=== PATIENT | female | born 1955 | race Caucasian/White ===

== ENCOUNTER → 2025-03-03 | Outpatient (CLI) | payer OTHER, SELFPAY ==
--- NOTE | 2025-03-03 13:35 | XR_ITS ---
Examination: PA lateral chest 2 views TECHNIQUE: Upright PA lateral chest 2 views Exam date and time: March 03, 2025 1344 hours INDICATIONS: Coughing congestion beginning 3 weeks ago. FINDINGS: Mild hyperexpansion No significant cardiac enlargement Accentuation basilar bronchovascular markings IMPRESSION: Mild bronchitis pattern
== END | disposition home or self-care (01) ==
LOC: CDIM 13:26
PROVIDERS: PCP Family Medicine; Referring Provider Family Medicine; Visit Provider Family Medicine
DX: R05.9 Cough, unspecified (principal); R09.89 Other specified symptoms and signs involving the circulatory and respiratory systems
CPT/HCPCS: 71046

== ENCOUNTER → 2025-06-03 | Outpatient (CLI) | payer OTHER, SELFPAY ==
[2025-06-03 08:07] LABS: Collection Type, Urine Clean Catch
[2025-06-03 08:44] LABS: Basophils # (Auto) 0.0 Thou/mm3 (0.0-0.2); Basophils % (Auto) 0 % (0-2.5); Eosinophils # (Auto) 0.1 Thou/mm3 (0.0-0.5); Eosinophils % (Auto) 1 % (0-10); Hematocrit 45.4 % (36.0-46.0); Hemoglobin 15.4 g/dL (12.0-16.0); Immature Granulocytes Auto 0.04 Thou/mm3 (0.00-0.00); Lymphocytes # (Auto) 2.2 Thou/mm3 (1.0-4.8); Lymphocytes % (Auto) 22 % (10-50); Mean Corpuscular HGB Conc 33.9 g/dl (31.0-37.0); Mean Corpuscular Hemoglobin 35.8 pg (25.0-35.0); Mean Corpuscular Volume 106 fL (80-100); Monocytes # (Auto) 0.6 Thou/mm3 (0.0-0.8); Monocytes % (Auto) 6 % (0-12); Neutrophils # (Auto) 7.1 Thou/mm3 (1.8-7.7); Neutrophils % (Auto) 71 % (37-80); Nucleated Red Blood Cell # 0.00 Thou/mm3 (0.00-0.00); Nucleated Red Blood Cell % 0 /100 WBC (0); Platelet Count 323 Thou/mm3 (140-440); RDW Standard Deviation 50.3 fL (36.4-46.3); Red Blood Count 4.30 Miln/mm3 (4.00-5.20); White Blood Count 9.9 Thou/mm3 (3.6-11.0)
[2025-06-03 08:45] LABS: Bacteria,Urine Rare; Bilirubin,Urine Negative (Negative); Blood,Urine Negative (Negative); Color,Urine Yellow (Lt Yel-Yel); Culture Indicated,Urine Not Indicated; Glucose, Urine Negative (Negative); Hyaline Casts,Urine < 1 /hpf (0-1); Ketones,Urine Negative (Negative); Leukocyte Esterase,Urine Negative (Negative); Nitrite,Urine Negative (Negative); PH,Urine 6.0 (5.0-7.0); Protein,Urine Negative (Neg - Trace); RBC,Urine 4 /hpf (0-3); Specific Gravity,Urine 1.016 (1.001-1.035); Squamous Epithelial Cell,Urine 12 /hpf (0-5); Urobilinogen,Urine Negative mg/dL (0.0-1.0); WBC,Urine 5 /hpf (0-5)
[2025-06-03 08:51] LABS: Glucose Estimated Average 114 mg/dL (80-131); Hemoglobin A1C 5.6 % Hgb (4.8-6.0)
[2025-06-03 09:02] LABS: Alanine Aminotransferase 83 U/L (10-49); Albumin, Serum 4.0 gm/dL (3.4-4.8); Albumin/Globulin Ratio 1.3 (1.2-2.2); Alkaline Phosphatase 108 U/L (46-116); Anion Gap 13 (7-16); Aspartate Amino Transferase 82 U/L (0-34); BUN/Creatinine Ratio 16 Ratio (12-20); Bilirubin,Total 0.8 mg/dL (0.3-1.2); Blood Urea Nitrogen 24 mg/dL (9-23); Calcium 9.5 mg/dL (8.3-10.6); Calcium (Corrected) 9.5 mg/dL (8.5-10.1); Carbon Dioxide 20.5 mMol/L (20.0-31.0); Cardiac Risk Estimate 3.6 RATIO (3.7-5.6); Chloride 108 mMol/L (98-107); Cholesterol 208 mg/dL (132-200); Creatinine (Component) 1.5 mg/dL (0.6-1.3); Globulin 3.0 gm/dL (2.3-3.5); Glucose 100 mg/dL (74-106); HDL Cholesterol 57 mg/dL (40-60); LDL Cholesterol,Calculated 134 mg/dL (0-130); Osmolality,Calculated 285 (275-295); Potassium 4.8 mMol/L (3.4-5.1); Sodium 141 mMol/L (136-145); Thyroid Stimulating Hormone 1.68 uIU/mL (0.55-4.78); Total Protein 7.0 gm/dL (5.7-8.2); Triglycerides 86 mg/dL (30-150); Vitamin D 25 Hydroxy Total 9.3 ng/mL (7.3-40.2); eGFR 38 See Note
[2025-06-03 09:23] LABS: Clarity,Urine Hazy (Clear/Hazy)
== END | disposition home or self-care (01) ==
LOC: COPL 06:46
PROVIDERS: PCP Family Medicine; Referring Provider Nurse Practitioner Family; Visit Provider Nurse Practitioner Family
DX: Z00.01 Encounter for general adult medical examination with abnormal findings (principal); I10 Essential (primary) hypertension
CPT/HCPCS: 36415; 80053; 80061; 81001; 82306; 83036; 84443; 85025

== ENCOUNTER 2025-07-06 14:15 | Inpatient (IN) | payer OTHER, MEDICARE, SELFPAY ==
[2025-07-06] VITALS (8 sets, daily range): BP systolic 119–150; BP diastolic 74–95; PULSE 64–91; RESP 14–18; TEMP 36.2–36.8; O2SAT 95–98; BMI 30.5; BMI 32.1
--- NOTE | 2025-07-06 14:34 | EKG_ITS ---
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
--- NOTE | 2025-07-06 14:36 | PD.EDWEAK ---
ED Weakness RME/HPI General Chief complaint: Weakness Stated complaint: DIZZINESS, WEAKNESS, HYPOTENSION Time Seen by Provider: 07/06/25 14:20 Arrival date/time: 07/06/25 14:15 RME / HPI RME / HPI Narrative: See [facility] for Dr. Freeman's HPI documentation. Related Data Home Medications ?Medication ?Instructions ?Recorded ?Confirmed losartan 50 mg tablet 50 mg PO DAILY 08/26/22 08/26/22 triamterene 75 1 tab PO QDAY 08/26/22 08/26/22 mg-hydrochlorothiazide 50 mg tablet Previous Rx's ?Medication ?Instructions ?Recorded pantoprazole 40 mg tablet,delayed 40 mg PO QDAY #90 tabs 08/26/22 release (Protonix) Allergies Allergy/AdvReac Type Severity Reaction Status Date / Time walnut Allergy Severe Swelling Verified 07/06/25 14:24 of Lip/Tongue/Throat Review of Systems Review of Systems Systems Reviewed: All systems reviewed, normal except as documented Past Medical History Past Medical History NEUROLOGIC: Negative Neurological Disorders, Seizures or Migraine CARDIAC: Positive Cardiac Disorders and Hypertension; Negative Congestive Heart Failure RESPIRATORY: Negative Chronic Obstructive Pulmonary Disease (COPD), Asthma or Sleep Apnea GASTROINTESTINAL: Negative Gastrointestinal Disorders GENITOURINARY: Negative Genitourinary Disorders or Renal Disease MUSCULOSKELETAL: Negative Musculoskeletal Disorders ENDOCRINE: Negative Endocrine Disorders, Diabetes Mellitus Type 1 or Diabetes Mellitus Type 2 HEMATOLOGIC: Negative Blood Disorders OTHER HISTORY: Positive Chicken Pox, Measles and Mumps; Negative Blood Transfusions, Anesthesia Reactions or Cancer Surgical History SURGICAL: Negative Cardiac Surgery Social History SMOKING STATUS: Never smoker ED Exam Narrative Physical exam: See [facility] for Dr. Freeman's physical exam documentation. Course Quality Measures none Orders Category Date Time Status Web Content Coordinator STAT Care 07/06/25 14:38 Active Continuous Pulse Oximetry NOW Care 07/06/25 14:38 Completed EKG (ED ONLY) *Do not use* NOW Care 07/06/25 14:35 Completed Insert IV STAT Care 07/06/25 14:38 Active Orthostatic Vitals NOW Care 07/06/25 14:39 Active Urinary Catheter STAT Care 07/06/25 14:[address] head/brain wo con Stat Exams 07/06/25 15:27 Completed EKG (ED Only) Stat Exams 07/06/25 14:34 Draft XR chest 1V portable Stat Exams 07/06/25 14:38 Completed B-Type Natriuretic Peptide Stat Lab 07/06/25 14:53 Completed CBC Stat Lab 07/06/25 14:53 Completed Comprehensive Metabolic Panel Stat Lab 07/06/25 14:53 Completed Magnesium Stat Lab 07/06/25 14:53 Completed Prothrombin Time with INR Stat Lab 07/06/25 14:53 Completed Troponin I Stat Lab 07/06/25 14:53 Completed Sodium Chloride 0.9% 1000 ml [Ns] 1,000 ml Med 07/06/25 14:38 Discontinued IV 999 mls/hr Oxygen Delivery NOW RT 07/06/25 14:38 Active Vital Signs Vital signs: Vital Signs Temperature 98.2 F 07/06/25 14:34 Pulse Rate 77 07/06/25 14:34 Respiratory Rate 16 07/06/25 14:34 Blood Pressure 119/74 07/06/25 14:34 Pulse Oximetry (%) 98 07/06/25 14:34 Oxygen Delivery Method Room Air 07/06/25 14:34 Weakness MDM Narrative MDM Narrative:: This section includes all my notes and documentations, including HPI, PE, and ED course. Yaya Freeman MD HPI: 70yo female with a history of Meniere's disease, HTN BIBA from home presents to the ED for a chief complaint of generalized weakness. Per EMS, patient has been feeling dizzy for the last 2 hours, reporting she lost consciousness while laying in bed watching TV. With EMS, blood pressure was 83/51 and LR was started. Patient reports associated chronic nausea and vomiting that has worsened over the last 2 weeks, and sweating. Denies any cough, chest pain, abdominal pain, back pain, UTI symptoms, bloody/black stools, or any other associated symptoms. Denies being on any blood thinners. ROS: All negative except as documented in HPI. Physical Exam: GENERAL APPEARANCE: alert and oriented x 4, well-developed, well-nourished, no acute distress VITALS: All vitals were reviewed and the pulse ox is 98% on room air, which is normal according to my interpretation. HEENT: Normocephalic, atraumatic; pupils equal, round, reactive to light; EOMI; mucous membranes pink, moist; oropharynx clear NECK: Supple LUNGS: CTABL; no wheezes, no rales, no rhonchi HEART: Regular rate, regular rhythm; normal S1, S2; no murmurs ABDOMEN: non distended; normal BS; soft, no tenderness, no guarding, no rebound; no masses, no organomegaly, no hernia BACK: no CVA tenderness EXTREMITIES: atraumatic; no edema NEUROLOGIC: awake; alert and oriented x4; cranial nerves II-XII grossly intact; no focal sensory or motor deficits PSYCHIATRIC: appropriate mood and affect SKIN: warm, dry, normal color; no rashes I reviewed EMS notes. I reviewed all diagnostic test results. My interpretation of the EKG is sinus rhythm with no STEMI. My interpretation of the CXR is cardiomegaly, chronic changes in the inferior lobes, no infiltrates, no pleural effusions, according to my interpretation. My review of the CT head report is unremarkable. Blood tests remarkable for Creatinine 1.5. At this point, diagnoses include: syncope Treatment here included: IV fluid At 1727, I discussed case with the resident physician, attending Dr. Sylvester from Hospitalist service regarding admission. Discussed patients ED course, exam findings, labs, and radiology results. The Hospitalist agrees to accept the patient for admission. Patient data External records reviewed:: [facility] previous records (Per chart review, patient has no previous ED visits or admissions to this facility.) and EMS form Clinical information provided by:: patient Social determinants that could affect healthcare access:: none Patient has the following chronic illnesses:: Meniere's disease, HTN How is presenting disease/condition affected by chronic disease/condition?: uneffected by Evaluation data The following diagnostics were reviewed and interpreted by me:: lab results, radiology exam(s) and EKG tracing(s) (done at 1437, NSR, rate of 77, normal axis, no ectopy, T wave inversion in V1-V3, no STEMI, unchanged from 07/28/23, according to my interpretation.) Lab and/or radiology exams considered but not ordered:: none Interpretation Summary: CXR shows cardiomegaly, chronic changes in the inferior lobes, no infiltrates, no pleural effusions, according to my interpretation. [place] [facility] Report Signed Patient: LANA MALIK [facility]. Record#: [id number] Birthdate: 1955 Age/Sex: 70 / F Location: [facility] Attending Dr: Ordering Physician: Catracho Freeman MD Date of Service: 07/06/25 Procedure(s): CT head/brain wo con Accession Number(s): [id number] cc: Ady Goldstein MD; Srinivasa Mccarthy MD; Catracho Freeman MD~ Examination: CT brain head without contrast. 2-D sagittal coronal reconstructions Date and time of exam:07/06/2025 1558 hrs Indications: syncope dizziness today Technique: Multiple CT axial sections of the brain have been obtained, 5 mm slice thickness. Contrast has not been administered. 2-D sagittal, coronal reconstructions have been obtained Low dose protocols were performed. One or more of the following dose reduction techniques were used; automated exposure control, adjustment of the mA and/or KV according to patient size, use of iterative reconstruction technique. Findings: No significant ventricular enlargement. Intra-axial or extra-axial hemorrhage density is not seen. No mass effect or midline shift Basal cisterns are not remarkable. Fourth ventricle is midline. Cranial vault intact. Impression: Negative for acute hemorrhage, mass effect or midline shift Dictated By: Srinivasa Mccarthy MD Signed By: <Electronically signed by Srinivasa Mccarthy MD in OV> 07/06/25 1703 Medications / Prescriptions Medications or Prescriptions considered but not ordered:: none Medication administrations:: Medication Administration History Discontinued Medications Sodium Chloride (Ns) 1,000 mls @ 999 mls/hr IV .Q1H1M ONE Stop: 07/06/25 15:38 Last Admin: 07/06/25 16:02 Dose: 999 mls/hr Documented By: CS see above Consultations Consultation(s) initiated? (list below): Yes Consultation #1 (Physician, Specialty, Details): At 1727, I discussed case with the resident physician, attending Dr. Sylvester from Hospitalist service regarding admission. Discussed patients ED course, exam findings, labs, and radiology results. The Hospitalist agrees to accept the patient for admission. Diagnosis Weakness Differential Diagnosis: dehydration and other (vasovagal syncope, electrolyte abnormality, orthostatic hypotension) Most likely diagnosis given after review of the tests above:: see clinical impression below Admission Indicated Admission indicated?: indicated Admission Request Was there a request for admission?: Yes Admission Attestation Admission request attestation: Discussed case with [] from Hospitalist service regarding admission. Discussed patients ED course, exam findings, labs, and radiology results. The Hospitalist [agrees,declines] to accept the patient for admission. Disposition Plan Disposition Plan: Admit Discharge Plan Plan Patient Disposition: Admit Acute Care w/in Hospital Prescriptions/Referrals Prescriptions/Med Rec: No Action losartan 50 mg tablet 50 mg PO DAILY triamterene-hydrochlorothiazid 75-50 mg Tablet 1 tab PO QDAY pantoprazole [Protonix] 40 mg Tablet,Delayed Release (Dr/Ec) 40 mg PO QDAY Qty: 90 0RF Referrals: Ady Goldstein MD [Primary Care Provider, Family Practice] - In 1 week Problem List Clinical Impression: Syncope Patient/Caregiver Discharge Instructions Print Language: Swazi Stand Alone Forms: Bren Award Info., Patient Portal Info Letter
--- NOTE | 2025-07-06 14:38 | XR_ITS ---
Chest: AP Chest single view Technique: Portable sitting AP chest single view Date and time: 07/06/2025 239 pm Indications: chest pain today Findings: Mild enlargement left ventricle Ectatic aorta No pneumonia or pulmonary edema Impression: No pneumonia or pulmonary edema
[2025-07-06 15:21] LABS: Basophils # (Auto) 0.0 Thou/mm3 (0.0-0.2); Basophils % (Auto) 0 % (0-2.5); Eosinophils # (Auto) 0.1 Thou/mm3 (0.0-0.5); Eosinophils % (Auto) 1 % (0-10); Hematocrit 36.4 % (36.0-46.0); Hemoglobin 12.3 g/dL (12.0-16.0); Immature Granulocytes Auto 0.02 Thou/mm3 (0.00-0.00); Lymphocytes # (Auto) 1.7 Thou/mm3 (1.0-4.8); Lymphocytes % (Auto) 30 % (10-50); Mean Corpuscular HGB Conc 33.8 g/dl (31.0-37.0); Mean Corpuscular Hemoglobin 36.6 pg (25.0-35.0); Mean Corpuscular Volume 108 fL (80-100); Monocytes # (Auto) 0.5 Thou/mm3 (0.0-0.8); Monocytes % (Auto) 8 % (0-12); Neutrophils # (Auto) 3.6 Thou/mm3 (1.8-7.7); Neutrophils % (Auto) 61 % (37-80); Nucleated Red Blood Cell # 0.00 Thou/mm3 (0.00-0.00); Nucleated Red Blood Cell % 0 /100 WBC (0); Platelet Count 277 Thou/mm3 (140-440); RDW Standard Deviation 57.1 fL (36.4-46.3); Red Blood Count 3.36 Miln/mm3 (4.00-5.20); White Blood Count 5.9 Thou/mm3 (3.6-11.0)
--- NOTE | 2025-07-06 15:27 | XR_ITS ---
Examination: CT brain head without contrast. 2-D sagittal coronal reconstructions Date and time of exam:07/06/2025 1558 hrs Indications: syncope dizziness today Technique: Multiple CT axial sections of the brain have been obtained, 5 mm slice thickness. Contrast has not been administered. 2-D sagittal, coronal reconstructions have been obtained Low dose protocols were performed. One or more of the following dose reduction techniques were used; automated exposure control, adjustment of the mA and/or KV according to patient size, use of iterative reconstruction technique. Findings: No significant ventricular enlargement. Intra-axial or extra-axial hemorrhage density is not seen. No mass effect or midline shift Basal cisterns are not remarkable. Fourth ventricle is midline. Cranial vault intact. Impression: Negative for acute hemorrhage, mass effect or midline shift
[2025-07-06 15:36] LABS: INR 1.0 (0.9-1.3); Prothrombin Time 10.9 Seconds (9.0-12.2)
[2025-07-06 15:52] LABS: B-Type Natriuretic Peptide 58 pg/mL (0-100)
[2025-07-06 15:56] LABS: Alanine Aminotransferase 72 U/L (10-49); Albumin, Serum 3.5 gm/dL (3.4-4.8); Albumin/Globulin Ratio 1.5 (1.2-2.2); Alkaline Phosphatase 98 U/L (46-116); Anion Gap 15 (7-16); Aspartate Amino Transferase 76 U/L (0-34); BUN/Creatinine Ratio 13 Ratio (12-20); Bilirubin,Total 0.4 mg/dL (0.3-1.2); Blood Urea Nitrogen 19 mg/dL (9-23); Calcium 9.7 mg/dL (8.3-10.6); Calcium (Corrected) 10.1 mg/dL (8.5-10.1); Carbon Dioxide 18.9 mMol/L (20.0-31.0); Chloride 106 mMol/L (98-107); Creatinine (Component) 1.5 mg/dL (0.6-1.3); Estimated Creatinine Clearance 41.0 mL/min (>60); Globulin 2.4 gm/dL (2.3-3.5); Glucose 94 mg/dL (74-106); Magnesium 1.7 mg/dL (1.6-2.6); Osmolality,Calculated 281 (275-295); Potassium 4.0 mMol/L (3.4-5.1); Sodium 140 mMol/L (136-145); Total Protein 5.9 gm/dL (5.7-8.2); Troponin I < 0.002 ng/mL (0.0-0.045); eGFR 38 See Note
[2025-07-06] MEDS: SODIUM CHLORIDE 0.9% 1000 ML 1,000 ML 999 ML IV (16:02)
--- NOTE | 2025-07-06 18:05 | ECHO_ITS ---
Transthoracic Echo Report Ht (in): 67 Wt (lb): 195 Exam Location: Echo Lab Status: Inpatient Rn Clinical Coordinator: Alexa Abad Indications: Procedure Performed: BP: 157 / 89 HR: 78 MEASUREMENTS (Male / Female) Normal Values 2D ECHO LV Diastolic Diameter PLAX 4.9 cm 4.2 - 5.9 / 3.9 - 5.3 cm LV Systolic Diameter PLAX 3.4 cm IVS Diastolic Thickness 0.9 cm 0.6 - 1.0 / 0.6 - 0.9 cm LVPW Diastolic Thickness 1.1 cm 0.6 - 1.0 / 0.6 - 0.9 cm LV Relative Wall Thickness 0.4 LVOT Diameter 1.8 cm LA Volume Index 10.7 cm?/m? 16 - 28 cm?/m? Ascending Aorta Diameter 3.1 cm M-MODE AV Cusp Separation MM 1.5 cm DOPPLER AV Peak Velocity 130.0 cm/s AV Peak Gradient 6.8 mmHg AV Mean Gradient 3.0 mmHg AV Velocity Time Integral 26.3 cm LVOT Peak Velocity 106.0 cm/s LVOT Peak Gradient 4.5 mmHg LVOT Velocity Time Integral 23.8 cm LVOT Cardiac Index 2280.7 cm?/min?m? AV Area Cont Eq vti 2.3 cm? AV Area Cont Eq pk 2.1 cm? MV Area PHT 3.2 cm? Mitral E Point Velocity 85.4 cm/s Mitral A Point Velocity 96.0 cm/s Mitral E to A Ratio 0.9 LV E' Lateral Velocity 7.4 cm/s Mitral E to LV E' Lateral Ratio 11.5 LV E' Septal Velocity 9.8 cm/s Mitral E to LV E' Septal Ratio 8.7 TR Peak Velocity 244.3 cm/s TR Peak Gradient 23.9 mmHg PV Peak Velocity 118.0 cm/s PV Peak Gradient 5.6 mmHg FINDINGS Left Ventricle Normal left ventricular size, wall thickness, systolic function with no obvious regional wall motion abnormalities.There is grade I diastolic dysfunction of the left ventricle (impaired relaxation pattern). The ejection fraction is visually estimated at 60-65 %. Right Ventricle The right ventricle is normal in size and systolic function. The estimated right ventricular systolic pressure, 30 mmHg with RAP 3 Left Atrium The left atrium is normal by two-dimensional, color flow and Doppler imaging with no structural abnormalities, no thrombus formation present. Right Atrium The right atrium is normal by two-dimensional imaging, color flow and Doppler imaging with no structural abnormalities, no thrombus formation present. Atrial Septum The interatrial septum appears normal with no evidence of a shunt. Aorta The aorta is normal by two-dimensional, color flow and Doppler interrogation. Mitral Valve The mitral valve is normal by two-dimensional, color flow and Doppler interrogation. Trace mitral regurgitation. Aortic Valve The aortic valve is trileaflet and normal by two-dimensional, color flow and Doppler interrogation. There is no significant aortic valve regurgitation. Tricuspid Valve The tricuspid valve is normal by two-dimensional, color flow and Doppler interrogation. There is trace tricuspid valve regurgitation. Pulmonic Valve The pulmonic valve is not well visualized. There is no significant pulmonic valve regurgitation. Vessels The pulmonary artery appears normal. The inferior vena cava pulmonary and hepatic veins appear normal. Pericardium There is a small pericardial effusion without evidence of pericardial tamponade. CONCLUSIONS Indication: Syncope Normal left ventricular size and function Mild LVH. Estimated ejection fraction is 60-65%. Grade 1 diastolic dysfunction. Normal Right ventricular size and function. RVSP 30mmHg with RAP 3 Trace mitral and trace tricuspid regurgitation noted. Mild AV sclerosis without stenosis. Small pericardial effusion with fibrogenous exudate on RV wall indicating possible chronic effusion. No evidence of pericardial tamponade. Minh Paige (Electronically Signed) Final Date: 07 July 2025 18:41
--- NOTE | 2025-07-06 18:14 | ESHP_ITS ---
<Statement entered by Jaxson Sylvester MD - 07/10/25 14:17> I reviewed above note and agree with findings and plans. I have also personally examined the patient with medicine team and went over assessment and plan with medical team including mechanical intern and resident physician. <Statement entered by Deny Yusuf MD - 07/07/25 11:16> Patient examined and case discussed with the team including attending physician. Note reviewed, I agree with the care plan as documented. Please refer to the note below for further details. - Deny Yusuf MD, PGY 3 Disclaimer: The document may contain phonetic/typographic errors due to voice recognition software. These errors are purely due to imperfections in the software program. Documentation for date of: 07/06/25 HPI History of Present Illness History of present illness: 70-year-old female with a past medical history of M?ni?re's disease and hypertension who presented to the ED on 07/06/2020 2:25 episodes of syncope. She was laying down in bed watching TV when she had 2, 1 minute episodes 1 minute apart where she passed out and was unresponsive per her . She does not remember these events. With EMS her blood pressure was 83/51 and LR was started and route. The patient endorses intensified nausea and vomiting over the past few weeks associated with her M?ni?re's disease. She denies any chest pain, palpitations, diarrhea, abdominal pain, or dysuria. She is not on blood thinners. ED course: * Vitals on arrival showed BP 119/74, pulse 77, respiratory rate 16, temperature 98.2, O2 sat 98% on room air. * The patient was given 1 L normal saline * Labs: BUN 19, creatinine 1.5, AST 76, ALT 72, MCV 108, sodium 140, potassium 4.0, chloride 106, carbon dioxide 18.9, anion gap 15. * Imaging: EKG showed a sinus rhythm with no acute ST segment changes. Chest x- ray was positive for cardiomegaly, negative for pulmonary infiltrates or pleural effusions. CT of the head was negative for any acute infarct or hemorrhage. * Patient will be admitted to telemetry for continued monitoring due to her syncope. History: * Past medical history: Hypertension, M?ni?re's disease * Family history: Patient is adopted, mentions that biological mother had gastric cancer * Surgical history: Left knee replacement 2 years ago, perforated ovary in the 1980s * Social history: Drinks 1-2 shots of whiskey nightly, denies tobacco use, denies substance use * Allergies: Walnuts, no known drug allergies Home medications: * Triamterene-hydrochlorothiazide 70-50 mg once daily * Losartan 50 mg once daily * Pantoprazole 40 mg daily Review of Systems Review of Systems Narrative Review of Systems: Review of Systems: * General: Denies fevers, chills. * HEENT: Denies headache, congestion, or sore throat. * Cardiac: Denies chest pain or palpitations. * Pulmonary: Endorses being [place] breath [place] Denies cough * GI: Admits to increased frequency of nausea and vomiting over the past few weeks associated with her M?ni?re's disease. Denies diarrhea, constipation, melena, or hematochezia. * : Denies dysuria, hematuria, frequency, or urgency. * MSK: Endorses left lower extremity swelling, denies pain in the extremities, joints, or myalgias. * Neuro: Denies weakness, numbness, vision changes, or speech difficulty. Exam Vital Signs Temp Pulse Resp BP Pulse Ox O2 Del Method 98.1 F 76 18 119/76 96 Room Air 07/06/25 16:10 07/06/25 16:24 07/06/25 16:13 07/06/25 16:24 07/06/25 16:10 07/06/25 16:10 Narrative Exam General: Awake and in no acute distress. Conversational and non-toxic appearing. Neurologic: GCS 15. Alert and oriented x3, no gross neurological deficit, and patient able to move all 4 extremities. HEENT: Mild proptosis bilaterally on gross examination, normocephalic, atraumatic, mucous membranes moist. Pupils reactive to light. Heart: Regular rate and rhythm, normal S1 and S2, no murmurs. Lungs: Clear to auscultation bilaterally with no wheezing or crackles. Abdomen: Soft, nondistended, nontender, positive bowel sounds. No guarding or rebound tenderness. Extremities: Left ankle swelling, nontender to palpation. No edema. 2+ radial and dorsalis pedis pulses bilaterally. Skin: Warm. Dry. No rash or ecchymoses. Results: Labs 07/07/25 04:26 07/07/25 04:26 Labs: Short CBC 07/06/25 Range/Units 14:53 WBC 5.9 (3.6-11.0) Thou/mm3 Hgb 12.3 (12.0-16.0) g/dL Hct 36.4 (36.0-46.0) % Plt Count 277 D (140-440) Thou/mm3 BMP 07/06/25 14:53 Sodium 140 Potassium 4.0 Chloride 106 Carbon Dioxide 18.9 L BUN 19 Creatinine 1.5 H Glucose 94 Calcium 9.7 Cardiac Enzymes 07/06/25 Range/Units 14:53 Troponin I < 0.002 (0.0-0.045) ng/mL Liver Function 07/06/25 Range/Units 14:53 Total Bilirubin 0.4 (0.3-1.2) mg/dL AST 76 H (0-34) U/L ALT 72 H (10-49) U/L Alkaline Phosphatase 98 (46-116) U/L Albumin 3.5 (3.4-4.8) gm/dL Quality Measures Quality Measures none Advance care planning discussed with:: patient Medications Home Medications and Allergies Home Medications ?Medication ?Instructions ?Recorded ?Confirmed ?Type losartan 50 mg tablet 50 mg PO DAILY 08/26/2205/23 History triamterene 75 1 tab PO QDAY 08/26/2207/06 History mg-hydrochlorothiazide 50 mg tablet aluminum-mag hydroxide-simethicone 15 ml PO Q6H PRN dy spepsia and 07/06/25 07/06/25 History 200 mg-200 mg-20 mg/5 mL oral susp Nausea/Vomiting (Antacid Regular Strength) Allergies Allergy/AdvReac Type Severity Reaction Status Date / Time walnut Allergy Severe Swelling Verified 07/06/25 14:24 of Lip/Tongue/Throat Visit Medications Acetaminophen (Acetaminophen 325 Mg Tablet) 650 mg PO Q6H PRN PRN Reason: Fever >99.9 Stop: 08/05/25 17:59 Lactated Ringer's (Lactated Ringers) 1,000 mls @ 75 mls/hr IV .[id number] Stop: 08/05/25 17:59 Discontinued Medications Sodium Chloride (Ns) 1,000 mls @ 999 mls/hr IV .Q1H1M ONE Stop: 07/06/25 15:38 Last Admin: 07/06/25 16:02 Dose: 999 mls/hr Assessment & Plan Plan 70-year-old woman with a past medical history of hypertension and M?ni?re's disease who presented after 2 episodes of syncope. She was found to be hypotensive with a blood pressure of 83/51 by EMS and fluids were started in route. Vitals were stable on arrival. She was given a total of 1 L of normal saline in the ED and admitted for monitoring of her syncopal episodes. #Syncopal episode * The day of presentation on 07/06/2025, patient had 2 approximately 1 minute episodes of syncope each by 1 minute which the patient lost consciousness but experienced no trauma * She does not remember either of these events * Head CT on 07/06/2025 was negative for acute hemorrhage mass effect or midline shift * EKG on 07/06/2025 showed sinus rhythm with a rate of 177 with low voltage QRS complexes * Patient's syncopal episode is suspicious for being arrhythmogenic in nature as the patient was stationary during the episode and orthostatic blood pressures are nearly similar * The patient denies chest pain or associated palpitations and EKG was negative for any acute ST segment changes, which may further reinforce a previously unknown underlying arrhythmia as the culprit for the patient's syncopal episode Plan: * Admit to telemetry for rhythm monitoring * Echo ordered * LR maintenance fluids * Follow-up troponins every 6 hours * Repeat EKG morning of 07/07/2025 * TSH & free T4 ordered * Will hold home all home medications: Losartan 50 mg p.o. daily, pantoprazole 40 mg p.o. daily, and triamterene hydrochlorothiazide 1 tablet daily #M?ni?re's disease * Patient mentions that her nausea and vomiting has intensified over the past 2 to 3 weeks Plan: * Will hold her home medication triamterene hydrochlorothiazide in the setting of syncopal episode * Zofran 4 mg IV push every 6 hours as needed for nausea or vomiting #History of hypertension * Patient takes losartan 50 mg daily at home * Will hold for now in the setting of syncope Plan: * Labetalol 10 mg IV push every 6 hours as needed for systolic blood pressure over 165 #LESIA * Creatinine 1.5 on arrival, unknown if this is baseline Plan: * Follow-up renal function panel in a.m. * Start IV maintenance fluids Hospital Maintenance: DVT ppx: SCDs Diet: Cardiac diet IV lines: Peripheral IVs Conteh: None Code status: Full code Dispo: Patient admitted to telemetry for monitoring of her cardiac rhythm in the setting of syncopal episode. Will follow-up troponins, echocardiogram, TSH, and repeat EKG tomorrow morning. Patient was seen and discussed with my attending physician Dr. Higinio PÉREZ and my senior resident Dr. Deny Yusuf MD PGY-3. Klever Pascual DO PGY-1.
[2025-07-06 19:20] LABS: Thyroid Stimulating Hormone 2.16 uIU/mL (0.55-4.78); Troponin I < 0.002 ng/mL (0.0-0.045)
[2025-07-06] MEDS: RINGERS LACTATED 500 ML 500 ML 999 ML IV (19:39)
[2025-07-06] MEDS: RINGERS LACTATED 1000 ML 1,000 ML 75 ML IV (19:39)
[2025-07-06] MEDS: Magnesium Sulfate 2 GM Ivpb 2 GM/50 ML BAG IV (19:39)
[2025-07-06] MEDS: FAMOTIDINE INJ 10 MG/ML VIAL 2 ML 20 MG IVP (19:40)
--- NOTE | 2025-07-06 19:54 | PC.NURSE ---
gave pt k+ pill she vomitted it after admin. called to notify hosptialist no answer will try again
--- NOTE | 2025-07-06 20:18 | PC.NURSE ---
dr. jason ok not ordering iv k+ as pt K+ 4.0
[2025-07-07] VITALS (8 sets, daily range): BP systolic 118–159; BP diastolic 83–95; PULSE 74–88; RESP 13–19; TEMP 36.3–37.1; O2SAT 95–98; BMI 32.1
[2025-07-07 01:56] LABS: Troponin I 0.065 ng/mL (0.0-0.045)
[2025-07-07 05:48] LABS: Basophils # (Auto) 0.0 Thou/mm3 (0.0-0.2); Basophils % (Auto) 0 % (0-2.5); Eosinophils # (Auto) 0.0 Thou/mm3 (0.0-0.5); Eosinophils % (Auto) 0 % (0-10); Hematocrit 38.8 % (36.0-46.0); Hemoglobin 13.2 g/dL (12.0-16.0); Immature Granulocytes Auto 0.03 Thou/mm3 (0.00-0.00); Lymphocytes # (Auto) 1.4 Thou/mm3 (1.0-4.8); Lymphocytes % (Auto) 19 % (10-50); Mean Corpuscular HGB Conc 34.0 g/dl (31.0-37.0); Mean Corpuscular Hemoglobin 36.3 pg (25.0-35.0); Mean Corpuscular Volume 107 fL (80-100); Monocytes # (Auto) 0.5 Thou/mm3 (0.0-0.8); Monocytes % (Auto) 7 % (0-12); Neutrophils # (Auto) 5.5 Thou/mm3 (1.8-7.7); Neutrophils % (Auto) 74 % (37-80); Nucleated Red Blood Cell # 0.00 Thou/mm3 (0.00-0.00); Nucleated Red Blood Cell % 0 /100 WBC (0); Platelet Count 293 Thou/mm3 (140-440); RDW Standard Deviation 55.2 fL (36.4-46.3); Red Blood Count 3.64 Miln/mm3 (4.00-5.20); White Blood Count 7.4 Thou/mm3 (3.6-11.0)
[2025-07-07 06:02] LABS: Alanine Aminotransferase 64 U/L (10-49); Albumin, Serum 3.5 gm/dL (3.4-4.8); Albumin/Globulin Ratio 1.3 (1.2-2.2); Alkaline Phosphatase 102 U/L (46-116); Anion Gap 13 (7-16); Aspartate Amino Transferase 55 U/L (0-34); BUN/Creatinine Ratio 14 Ratio (12-20); Bilirubin,Total 0.9 mg/dL (0.3-1.2); Blood Urea Nitrogen 17 mg/dL (9-23); Calcium 9.5 mg/dL (8.3-10.6); Calcium (Corrected) 9.9 mg/dL (8.5-10.1); Carbon Dioxide 20.5 mMol/L (20.0-31.0); Cardiac Risk Estimate 3.2 RATIO (3.7-5.6); Chloride 108 mMol/L (98-107); Cholesterol 170 mg/dL (132-200); Creatinine (Component) 1.2 mg/dL (0.6-1.3); Estimated Creatinine Clearance 52.6 mL/min (>60); Free T4 (Free Thyroxine) 1.64 ng/dL (0.89-1.76); Globulin 2.7 gm/dL (2.3-3.5); Glucose 93 mg/dL (74-106); HDL Cholesterol 53 mg/dL (40-60); LDL Cholesterol,Calculated 97 mg/dL (0-130); Magnesium 2.1 mg/dL (1.6-2.6); Osmolality,Calculated 282 (275-295); Phosphorous 3.0 mg/dL (2.4-5.1); Potassium 4.6 mMol/L (3.4-5.1); Sodium 141 mMol/L (136-145); Total Protein 6.2 gm/dL (5.7-8.2); Triglycerides 98 mg/dL (30-150); eGFR 49 See Note
[2025-07-07 07:04] LABS: Troponin I 0.175 ng/mL (0.0-0.045)
[2025-07-07] MEDS: FAMOTIDINE INJ 10 MG/ML VIAL 2 ML 20 MG IVP (08:59)
[2025-07-07] MEDS: RINGERS LACTATED 1000 ML 1,000 ML 75 ML IV (09:11)
[2025-07-07] MEDS: VIT B12/Vit C/FA (Nephrovite) TABLET 1 TAB PO (09:11)
[2025-07-07] MEDS: ONDANSETRON INJ 2 MG/ML INJ 2 ML 4 MG IVP ×2 (09:51→16:54)
--- NOTE | 2025-07-07 11:36 | PC.SS ---
Patient is alert/oriented. Patient was able to verify demographics. Patient resides with her . Independent with ADL's. Patient does not possess DME. Admitted for syncope. Patient drives herself to appointments. Pharmacy: [facility]. PCP: Dr. Goldstein. Last appt was 2 weeks ago. Patient discharge plan is to return home. Alt medical decision maker: Adrian Woods, , transportation: family Patient d/c plan: home no further needs
[2025-07-07 13:16] LABS: Troponin I 0.241 ng/mL (0.0-0.045)
--- NOTE | 2025-07-07 16:35 | ESPR_ITS ---
<Statement entered by Jaxson Sylvester MD - 07/10/25 14:18> I reviewed above note and agree with findings and plans. I have also personally examined the patient with medicine team and went over assessment and plan with medical team including music internship and resident physician. <Statement entered by Ra Olmtsead MD - 07/07/25 18:09> No acute overnight events. Seen and examined at bedside. States that she has not been experiencing any shortness of breath or chest pain but troponins continue to uptrend and so we will continue to follow. Cardiology consulted and appreciate recommendations, echo pending. ----- Note reviewed and agree with care plan as documented. Please refer to the note below for further details. Plan discussed with attending physician Dr. Higinio Olmstead MD PGY-2 Internal Medicine Documentation for date of: 07/07/25 Subjective Subjective Interval history: Troponins are uptrending, went from 0.175 to 0.241. Cardiology consulted, pending echo as well. MCV 107, gave Nephro-Lillian. Patient is resting comfortably in bed and currently has no symptoms of nausea or dizziness. Had an episode of vomiting last night in the ED before she was moved upstairs. Exam Vital Signs Temp Pulse Resp BP Pulse Ox O2 Del Method 97.4 F 81 15 158/85 H 98 Room Air 07/07/25 11:46 07/07/25 12:00 07/07/25 11:46 07/07/25 11:46 07/07/25 11:46 07/07/25 11:46 Narrative Exam General: Awake and in no acute distress. Conversational and non-toxic appearing. Neurologic: GCS 15. Alert and oriented x3, no gross neurological deficit, and patient able to move all 4 extremities. HEENT: Mild proptosis bilaterally on gross examination, normocephalic, atraumatic, mucous membranes moist. Pupils reactive to light. Heart: Regular rate and rhythm, normal S1 and S2, no murmurs. Lungs: Clear to auscultation bilaterally with no wheezing or crackles. Abdomen: Soft, nondistended, nontender, positive bowel sounds. No guarding or rebound tenderness. Extremities: Left ankle swelling, nontender to palpation. No edema. 2+ radial and dorsalis pedis pulses bilaterally. Skin: Warm. Dry. No rash or ecchymoses. Objective Labs 07/07/25 04:26 07/07/25 04:26 Labs: Laboratory Results - last 24 hr 07/06/25 07/07/25 07/07/25 18:32 00:43 04:26 WBC 7.4 RBC 3.64 L Hgb 13.2 Hct 38.8 MCV 107 H MCH 36.3 H MCHC 34.0 RDW Std Deviation 55.2 H Plt Count 293 Neut % (Auto) 74 Lymph % (Auto) 19 [place] % (Auto) 7 Eos % (Auto) 0 Baso % (Auto) 0 Neut # (Auto) 5.5 Lymph # (Auto) 1.4 [place] # (Auto) 0.5 Eos # (Auto) 0.0 Baso # (Auto) 0.0 Immature Gran # (Auto) 0.03 H Absolute Nucleated RBC 0.00 Immature Gran % 0 Nucleated RBC % 0 Sodium 141 Potassium 4.6 D Chloride 108 H Carbon Dioxide 20.5 Anion Gap 13 BUN 17 Creatinine 1.2 Estim Creat Clear Calc 52.6 L eGFR 49 L BUN/Creatinine Ratio 14 Glucose 93 Calculated Osmolality 282 Calcium 9.5 Corrected Calcium 9.9 Phosphorus 3.0 Magnesium 2.1 Total Bilirubin 0.9 D AST 55 H ALT 64 H Alkaline Phosphatase 102 Troponin I < 0.002 0.065 H* Total Protein 6.2 Albumin 3.5 Globulin 2.7 Albumin/Globulin Ratio 1.3 Triglycerides 98 Cholesterol 170 LDL Cholesterol, Calc 97 HDL Cholesterol 53 Cholesterol/HDL Ratio 3.2 L TSH 2.16 Free T4 1.64 07/07/25 07/07/25 06:18 12:13 WBC RBC Hgb Hct MCV MCH MCHC RDW Std Deviation Plt Count Neut % (Auto) Lymph % (Auto) [place] % (Auto) Eos % (Auto) Baso % (Auto) Neut # (Auto) Lymph # (Auto) [place] # (Auto) Eos # (Auto) Baso # (Auto) Immature Gran # (Auto) Absolute Nucleated RBC Immature Gran % Nucleated RBC % Sodium Potassium Chloride Carbon Dioxide Anion Gap BUN Creatinine Estim Creat Clear Calc eGFR BUN/Creatinine Ratio Glucose Calculated Osmolality Calcium Corrected Calcium Phosphorus Magnesium Total Bilirubin AST ALT Alkaline Phosphatase Troponin I 0.175 H* 0.241 H* Total Protein Albumin Globulin Albumin/Globulin Ratio Triglycerides Cholesterol LDL Cholesterol, Calc HDL Cholesterol Cholesterol/HDL Ratio TSH Free T4 Quality Measures Quality Measures none Advance care planning discussed with:: patient Assessment & Plan Assessment Current Active Medications: Generic Name Dose Route Start Last Admin Trade Name Freq PRN Reason Stop Dose Admin Acetaminophen 1,000 mg 07/06/25 18:30 Acetaminophen 500 Mg Tablet PO 08/05/25 17:59 Q6H PRN Fever >99.9 Famotidine 20 mg 07/07/25 21:00 Famotidine 20 Mg Tablet PO 08/06/25 20:59 Q12HR GUILLAUME Lactated Ringer's 1,000 mls @ 75 mls/hr 07/06/25 18:00 07/07/25 09:11 Lactated Ringers IV 08/05/25 17:59 75 mls/hr .[id number] GUILLAUME Administration Labetalol HCl 10 mg 07/06/25 18:32 Labetalol Inj 5 Mg/Ml Vial 20 Ml IVP 08/05/25 18:44 Q6HR PRN SBP >165 Ondansetron HCl 4 mg 07/06/25 18:00 07/07/25 09:51 Ondansetron Inj 2 Mg/Ml Inj 2 Ml IVP 08/05/25 17:59 4 mg Q6H PRN Administration NAUSEA OR VOMITING Protocol Vitamin B Complex/Vit C/Folic Acid 1 tab 07/07/25 09:00 07/07/25 09:11 Vit B12/Vit C/Fa (Nephrovite) Tablet PO 08/06/25 08:59 1 tab QDAY GUILLAUME Administration Plan 70-year-old woman with a past medical history of hypertension and M?ni?re's disease who presented after 2 episodes of syncope. She was found to be hypotensive with a blood pressure of 83/51 by EMS and fluids were started in route. Vitals were stable on arrival. She was given a total of 1 L of normal saline in the ED and admitted for monitoring of her syncopal episodes. #Syncopal episode * The day of presentation on 07/06/2025, patient had 2 approximately 1 minute episodes of syncope each by 1 minute which the patient lost consciousness but experienced no trauma * She does not remember either of these events * Head CT on 07/06/2025 was negative for acute hemorrhage mass effect or midline shift * EKG on 07/06/2025 showed sinus rhythm with a rate of 177 with low voltage QRS complexes * Patient's syncopal episode is suspicious for being arrhythmogenic in nature as the patient was stationary during the episode and orthostatic blood pressures are nearly similar * TSH 2.16, Free T4 1.64, helps rule out hyperthyroidism as culprit for syncope * The patient denies chest pain or associated palpitations and EKG was negative for any acute ST segment changes, which may further reinforce a previously unknown underlying arrhythmia as the culprit for the patient's syncopal episode Plan: * Echo done, follow-up read * DC LR maintenance fluids * Will continue to hold home all home medications: Losartan 50 mg p.o. daily, pantoprazole 40 mg p.o. daily, and triamterene hydrochlorothiazide 1 tablet daily #Elevated troponins * Troponins trended from 0.175 to 0.241 * EKG on arrival negative for any acute ST segment changes Plan: * Next troponin at 1833 on 07/07/2025 * Cardiology consulted * Echo completed, pending read #M?ni?re's disease * Patient mentions that her nausea and vomiting has intensified over the past 2 to 3 weeks Plan: * Will hold her home medication triamterene hydrochlorothiazide in the setting of syncopal episode * Zofran 4 mg IV push every 6 hours as needed for nausea or vomiting #History of hypertension * Patient takes losartan 50 mg daily at home * Will hold for now in the setting of syncope Plan: * Labetalol 10 mg IV push every 6 hours as needed for systolic blood pressure over 165 #GERD * Patient takes Protonix 40 mg p.o. daily Plan: * Started famotidine 20 mg p.o. every 12 hours due to LESIA, though LESIA has resolved will continue famotidine #LESIA (resolved) * Creatinine 1.5 on arrival, unknown if this is baseline * Downtrended to 1.2 Plan: * DC IV maintenance fluids Hospital Maintenance: DVT ppx: SCDs Diet: Cardiac diet IV lines: Peripheral IVs Conteh: None Code status: Full code Dispo: Pending cardiology consult and echo read. Trending troponins closely. Patient was seen and discussed with my attending physician Dr. Higinio PÉREZ and my senior resident Dr. Aysha PÉREZ PGY-2.
--- NOTE | 2025-07-07 17:00 | PD.RESCONSUL ---
HPI Data of Consult Requesting Physician: Jaxson Sylvester MD Admitting Provider: Jaxson Sylvester MD Attending Provider: Jaxson Sylvester MD Primary Care Provider: Ady Goldstein MD Consult Narrative Reason for consult: Syncope History of present illness: Tia Woods 70F pmhx significant for M?ni?re's disease and HTN who presents with 2 syncopal episodes. Patient reports that earlier today she was sitting in bed propped up watching television when her witnessed a syncopal episode. Per described the episode as she was not responding to his voice or shaking, episode lasted about 30 seconds and she regained consciousness spontaneously however had slurred speech and slight confusion. Following this episode, she got up to use the restroom and promptly vomited and returned back to lie down where a second episode occurred. Has been reports episode was similar to the initial where she was spacing out with slight tremors throughout arms and legs this time. Patient reports that she has history of passing out first episode at the age of 11 while she was standing getting her hair braided. Describes prodrome of darkening of the peripheral vision then syncope. She has these episodes about once a year and episode is relieved by sitting on the ground and putting her head between her legs. Reports that she hydrates a lot however for the past week for many years has been worse with frequent episodes of dizziness and more frequent vomiting which she attributes to the temperature changes. Furthermore she has had decreased p.o. intake due to the frequent vomiting, however has been hydrating well. Patient currently denies chest pain, chest pressure, shortness of breath, lightheadedness, dizziness or palpitations. PMHx: Hypertension and M?ni?re's disease Surgical Hx: Remote tonsillectomy, left total knee replacement, ovarian cyst surgery in 1980 FHx: Adopted. Lives at home with . Has 1 daughter and 3 granddaughters Social Hx: Denies tobacco use. Admits to drinking 2 shots of whiskey and night. Remote marijuana use. Retired gas appliance installer Allergies: NKDA Medications: Losartan 50 mg daily, triamterene hydrochlorothiazide 1 tab daily, Vitamin D and Vitamin E In ED, BP 119/74 HR 77 afebrile satting 98% RA, Hgb 13.2 MCV 107, bicarb 18.9, Cr 1.5, GFR 38, Mg 1.7, AST/ALT 76/72, troponins 0.002, 0.065, 0.175, 0.241. EKG on admission showed sinus rhythm with rate 77 Cardiology consulted for syncope workup. cc:: cc: Jaxson Sylvester MD Review of Systems Review of Systems Systems Reviewed: All systems reviewed, normal except as documented Exam Vital Signs Temp Pulse Resp BP Pulse Ox O2 Del Method 97.5 F 84 13 118/95 H 96 Room Air 07/07/25 16:00 07/07/25 16:00 07/07/25 16:00 07/07/25 16:00 07/07/25 16:00 07/07/25 16:00 Narrative Exam GENERAL: AOx3, no acute distress, sitting up comfortably in bed HEENT: NC/AT, mucous membranes moist, bilateral sclera anicteric CARDIOVASCULAR: regular rate and rhythm, S1/S2 present, 2/6 systolic murmur PULMONARY: clear to auscultation bilaterally, no rales/rhonchi/wheezes ABDOMINAL: soft, non-tender, non-distended, no rebound/guarding, bowel sounds present EXTREMITIES: trace BLE pitting edema SKIN: warm and dry, intact, no rashes NEURO: CN II-XII grossly intact, no focal deficits, alert, following commands Results Labs 07/07/25 04:26 07/07/25 04:26 Labs: Short CBC 07/07/25 Range/Units 04:26 WBC 7.4 (3.6-11.0) Thou/mm3 Hgb 13.2 (12.0-16.0) g/dL Hct 38.8 (36.0-46.0) % Plt Count 293 (140-440) Thou/mm3 BMP 07/07/25 04:26 Sodium 141 Potassium 4.6 D Chloride 108 H Carbon Dioxide 20.5 BUN 17 Creatinine 1.2 Glucose 93 Calcium 9.5 Cardiac Enzymes 07/06/25 07/07/25 07/07/25 Range/Units 18:32 00:43 06:18 Troponin I < 0.002 0.065 H* 0.175 H* (0.0-0.045) ng/mL 07/07/25 Range/Units 12:13 Troponin I 0.241 H* (0.0-0.045) ng/mL Liver Function 07/07/25 Range/Units 04:26 Total Bilirubin 0.9 D (0.3-1.2) mg/dL AST 55 H (0-34) U/L ALT 64 H (10-49) U/L Alkaline Phosphatase 102 (46-116) U/L Albumin 3.5 (3.4-4.8) gm/dL Quality Measures Quality Measures none Advance care planning discussed with:: patient Medications Home Medications and Allergies Home Medications ?Medication ?Instructions ?Recorded ?Confirmed ?Type losartan 50 mg tablet 50 mg PO DAILY 08/26/22 07/06/25 History triamterene 75 1 tab PO QDAY 08/26/22 07/06/25 History mg-hydrochlorothiazide 50 mg tablet aluminum-mag hydroxide-simethicone 15 ml PO Q6H PRN dyspepsia and 07/06/25 07/06/25 History 200 mg-200 mg-20 mg/5 mL oral susp Nausea/Vomiting (Antacid Regular Strength) Allergies Allergy/AdvReac Type Severity Reaction Status Date / Time walnut Allergy Severe Swelling Verified 07/06/25 14:24 of Lip/Tongue/Throat Visit Medications Acetaminophen (Acetaminophen 500 Mg Tablet) 1,000 mg PO Q6H PRN PRN Reason: Fever >99.9 Stop: 08/05/25 17:59 Famotidine (Famotidine 20 Mg Tablet) 20 mg PO Q12HR [facility] Stop: 08/06/25 20:59 Labetalol HCl (Labetalol Inj 5 Mg/Ml Vial 20 Ml) 10 mg IVP Q6HR PRN PRN Reason: SBP >165 Stop: 08/05/25 18:44 Ondansetron HCl (Ondansetron Inj 2 Mg/Ml Inj 2 Ml) 4 mg IVP Q6H PRN; Protocol PRN Reason: NAUSEA OR VOMITING Stop: 08/05/25 17:59 Last Admin: 07/07/25 16:54 Dose: 4 mg Vitamin B Complex/Vit C/Folic Acid (Vit B12/Vit C/Fa (Nephrovite) Tablet) 1 tab PO QDAY [facility] Stop: 08/06/25 08:59 Last Admin: 07/07/25 09:11 Dose: 1 tab Discontinued Medications Acetaminophen (Acetaminophen 325 Mg Tablet) 650 mg PO Q6H PRN PRN Reason: Fever >99.9 Stop: 08/05/25 17:59 Famotidine (Famotidine Inj 10 Mg/Ml Vial 2 Ml) 20 mg IVP Q12HR GUILLAUME Stop: 08/05/25 18:59 Last Admin: 07/07/25 08:59 Dose: 20 mg Sodium Chloride (Ns) 1,000 mls @ 999 mls/hr IV .Q1H1M ONE Stop: 07/06/25 15:38 Last Infusion: 07/06/25 19:48 Dose: Infused Lactated Ringer's (Lactated Ringers) 1,000 mls @ 75 mls/hr IV .[id number] GUILLAUME Stop: 08/05/25 17:59 Last Infusion: 07/07/25 16:53 Dose: 0 mls/hr Magnesium Sulfate (Magnesium Sulfate Ivpb) 2 gm in 50 mls @ 25 mls/hr IV X1 ONE Stop: 07/06/25 20:29 Last Admin: 07/06/25 19:39 Dose: 25 mls/hr Lactated Ringer's (Lactated Ringers) 500 mls @ 999 mls/hr IV .Q31M ONE Stop: 07/06/25 19:00 Last Infusion: 07/06/25 20:50 Dose: Infused Pantoprazole Sodium (Pantoprazole Inj 40 Mg Vial) 40 mg IVP QDAY GUILLAUME Stop: 08/05/25 18:44 Potassium Chloride (Potassium Chloride 20 Meq Tabcr) 20 meq PO X1 ONE Stop: 07/06/25 18:37 Last Admin: 07/06/25 20:17 Dose: Not Given Assessment & Plan Plan Tia Woods 70F pmhx significant for M?ni?re's disease and HTN who presents with 2 syncopal episodes admitted for syncope workup. Cardiology consulted for syncope workup. #Syncope #Hx of syncope Patient presenting with 2 episodes of syncope at rest, each episode lasting for about 30 seconds to a minute. Has a history of syncopal episodes since childhood however usually has a prodrome of darkening peripherals and resolution with knee chest position, and recent episode has been different prior to the rest, as this time is associated with slurred speech slight confusion, not remembering the episode (as you know she is able to) and tremors. Admission bicarb 18.9, Cr 1.5. Ddx: Dehydration from frequent vomiting due to exacerbation of M?ni?re's disease, electrolyte abnormalities due to frequent vomiting, arrhythmia, seizure, orthostatic hypotension CT head negative for acute processes, EKG shows sinus rhythm rate [address] elevation. Plan: - F/u echocardiogram - Repeat orthostatics - Telemetry for cardiac monitoring - Hold Losartan and triamterene HCTZ due to soft BP - Will likely need holter monitoring outpatient if inpatient workup is negative - If cardiac workup negative, recommend EEG to rule out seizure #NSTEMI, type I vs type II Admisison trops 0.002, 0.065, 0.175, 0.241. Has had no history of heart attack. Currently denies chest pain, pressure, shortness of breath or palpitations. Likely demand ischemia secondary to episode of syncope however cannot rule out type I due to comorbidities and continuation elevation of troponins. Plan: - CTM troponins until downtrend - F/u echocardiogram - Telemetry for monitoring - Keep K>4 and Mg>2 #M?ni?re's disease Patient reports longstanding history of M?ni?re's disease however for the past 1 to 2 weeks symptoms have been worsening due to increase in temperature. Reports frequent episodes of vomiting which may be a cause for syncope secondary to dehydration. Takes triamterene hydrochlorothiazide for many years. Plan: - CTM electrolytes - Zofran prn for nausea - Hold home triamterene-hydrochlorothiazide iso soft BPs #HTN Medications as above. Does not take BP at home. Plan: - Hold BP meds as above - CTM vitals #GERD #LESIA (resolved) Above managed by primary team. Thank you for the consultation and allowing participation in patient care. Plan of care discussed with attending Dr. Paige. Radha Hill, PGY-1 Internal Medicine
[2025-07-07 19:15] LABS: Troponin I 0.215 ng/mL (0.0-0.045)
[2025-07-07] MEDS: FAMOTIDINE 20 MG TABLET PO (20:39)
[2025-07-08] VITALS: BP 160/97; PULSE 90; RESP 19; TEMP 38.1; O2SAT 92
[2025-07-08 01:00] VITALS: TEMP 37.2
[2025-07-08 04:00] VITALS: BP 145/92; PULSE 88; PULSE 90; RESP 17; TEMP 36.3; O2SAT 95
[2025-07-08] MEDS: ONDANSETRON INJ 2 MG/ML INJ 2 ML 4 MG IVP (04:31)
[2025-07-08 05:57] VITALS: BMI 32.1
[2025-07-08 06:03] LABS: Basophils # (Auto) 0.0 Thou/mm3 (0.0-0.2); Basophils % (Auto) 0 % (0-2.5); Eosinophils # (Auto) 0.1 Thou/mm3 (0.0-0.5); Eosinophils % (Auto) 1 % (0-10); Hematocrit 36.1 % (36.0-46.0); Hemoglobin 11.9 g/dL (12.0-16.0); Immature Granulocytes Auto 0.02 Thou/mm3 (0.00-0.00); Lymphocytes # (Auto) 1.3 Thou/mm3 (1.0-4.8); Lymphocytes % (Auto) 22 % (10-50); Mean Corpuscular HGB Conc 33.0 g/dl (31.0-37.0); Mean Corpuscular Hemoglobin 35.5 pg (25.0-35.0); Mean Corpuscular Volume 108 fL (80-100); Monocytes # (Auto) 0.6 Thou/mm3 (0.0-0.8); Monocytes % (Auto) 10 % (0-12); Neutrophils # (Auto) 4.0 Thou/mm3 (1.8-7.7); Neutrophils % (Auto) 67 % (37-80); Nucleated Red Blood Cell # 0.00 Thou/mm3 (0.00-0.00); Nucleated Red Blood Cell % 0 /100 WBC (0); Platelet Count 291 Thou/mm3 (140-440); RDW Standard Deviation 57.1 fL (36.4-46.3); Red Blood Count 3.35 Miln/mm3 (4.00-5.20); White Blood Count 5.9 Thou/mm3 (3.6-11.0)
[2025-07-08 06:22] LABS: INR 1.0 (0.9-1.3); Partial Thromboplastin Time 26.9 Seconds (22.0-36.0); Prothrombin Time 11.1 Seconds (9.0-12.2)
[2025-07-08 06:24] LABS: Alanine Aminotransferase 48 U/L (10-49); Albumin, Serum 3.2 gm/dL (3.4-4.8); Albumin/Globulin Ratio 1.2 (1.2-2.2); Alkaline Phosphatase 95 U/L (46-116); Anion Gap 12 (7-16); Aspartate Amino Transferase 48 U/L (0-34); BUN/Creatinine Ratio 14 Ratio (12-20); Bilirubin,Total 1.1 mg/dL (0.3-1.2); Blood Urea Nitrogen 15 mg/dL (9-23); Calcium 9.0 mg/dL (8.3-10.6); Calcium (Corrected) 9.6 mg/dL (8.5-10.1); Carbon Dioxide 21.3 mMol/L (20.0-31.0); Chloride 109 mMol/L (98-107); Creatinine (Component) 1.1 mg/dL (0.6-1.3); Estimated Creatinine Clearance 57.3 mL/min (>60); Globulin 2.6 gm/dL (2.3-3.5); Glucose 88 mg/dL (74-106); Osmolality,Calculated 282 (275-295); Potassium 4.0 mMol/L (3.4-5.1); Sodium 142 mMol/L (136-145); Total Protein 5.8 gm/dL (5.7-8.2); eGFR 55 See Note
[2025-07-08 08:00] VITALS: BP 135/88; PULSE 85; PULSE 92; RESP 20; TEMP 37.1; O2SAT 94
[2025-07-08] MEDS: FAMOTIDINE 20 MG TABLET PO (09:04)
[2025-07-08] MEDS: VIT B12/Vit C/FA (Nephrovite) TABLET 1 TAB PO (09:04)
[2025-07-08 10:01] LABS: Magnesium 1.5 mg/dL (1.6-2.6)
--- NOTE | 2025-07-08 10:02 | ESPR_ITS ---
Documentation for date of: 07/08/25 Subjective Subjective Interval history: Patient seen and examined at bedside. Telemetry reviewed no arrhythmias noted. Vitals and labs reviewed . Patient feels well today, ready to go home. Reports that nausea is completely resolved on Zofran. Denies history of autoimmune disease. However patient reports she had an EGD done 2021 which showed an esophageal ulcer without bleeding, GERD with esophagitis, and multiple erosions ulcers at GE junction however she did not take the recommended pantoprazole due to reading that it causes decreased bone density. Denies any further syncopal episodes. Denies chest pain, pressure, headaches shortness of breath, lightheadedness, dizziness, palpitations. Hgb 11.9 from 13.2, K 4.0, troponins downtrended 0.241 to 0.215, AST/ALT downtrending from 55/64 to 48/48. Exam Vital Signs Temp Pulse Resp BP Pulse Ox O2 Del Method 98.7 F 85 20 135/88 H 94 L Room Air 07/08/25 08:00 07/08/25 08:00 07/08/25 08:00 07/08/25 08:00 07/08/25 08:00 07/08/25 08:00 Narrative Exam GENERAL: AOx3, no acute distress, sitting up comfortably in bed HEENT: NC/AT, mucous membranes moist, bilateral sclera anicteric CARDIOVASCULAR: regular rate and rhythm, S1/S2 present, 2/6 systolic murmur PULMONARY: clear to auscultation bilaterally, no rales/rhonchi/wheezes ABDOMINAL: soft, non-tender, non-distended, no rebound/guarding, bowel sounds present EXTREMITIES: trace BLE pitting edema SKIN: warm and dry, intact, no rashes NEURO: CN II-XII grossly intact, no focal deficits, alert, following commands Objective Labs 07/08/25 04:21 07/08/25 04:21 Labs: Laboratory Results - last 24 hr 07/07/25 07/07/25 07/08/25 12:13 18:45 04:21 WBC 5.9 RBC 3.35 L Hgb 11.9 L Hct 36.1 MCV 108 H MCH 35.5 H MCHC 33.0 RDW Std Deviation 57.1 H Plt Count 291 Neut % (Auto) 67 Lymph % (Auto) 22 [place] % (Auto) 10 Eos % (Auto) 1 Baso % (Auto) 0 Neut # (Auto) 4.0 Lymph # (Auto) 1.3 [place] # (Auto) 0.6 Eos # (Auto) 0.1 Baso # (Auto) 0.0 Immature Gran # (Auto) 0.02 H Absolute Nucleated RBC 0.00 Immature Gran % 0 Nucleated RBC % 0 PT 11.1 INR 1.0 APTT 26.9 Sodium 142 Potassium 4.0 D Chloride 109 H Carbon Dioxide 21.3 Anion Gap 12 BUN 15 Creatinine 1.1 Estim Creat Clear Calc 57.3 L eGFR 55 L BUN/Creatinine Ratio 14 Glucose 88 Calculated Osmolality 282 Calcium 9.0 Corrected Calcium 9.6 Magnesium 1.5 L Total Bilirubin 1.1 AST 48 H ALT 48 Alkaline Phosphatase 95 Troponin I 0.241 H* 0.215 H* Total Protein 5.8 Albumin 3.2 L Globulin 2.6 Albumin/Globulin Ratio 1.2 Quality Measures Quality Measures none Advance care planning discussed with:: patient Assessment & Plan Assessment Current Active Medications: Generic Name Dose Route Start Last Admin Trade Name Freq PRN Reason Stop Dose Admin Acetaminophen 1,000 mg 07/06/25 18:30 Acetaminophen 500 Mg Tablet PO 08/05/25 17:59 Q6H PRN Fever >99.9 Famotidine 20 mg 07/07/25 21:00 07/08/25 09:04 Famotidine 20 Mg Tablet PO 08/06/25 20:59 20 mg Q12HR GUILLAUME Administration Labetalol HCl 10 mg 07/06/25 18:32 Labetalol Inj 5 Mg/Ml Vial 20 Ml IVP 08/05/25 18:44 Q6HR PRN SBP >165 Ondansetron HCl 4 mg 07/06/25 18:00 07/08/25 04:31 Ondansetron Inj 2 Mg/Ml Inj 2 Ml IVP 08/05/25 17:59 4 mg Q6H PRN Administration NAUSEA OR VOMITING Protocol Vitamin B Complex/Vit C/Folic Acid 1 tab 07/07/25 09:00 07/08/25 09:04 Vit B12/Vit C/Fa (Nephrovite) Tablet PO 08/06/25 08:59 1 tab QDAY GUILLAUME Administration Plan Tia Woods 70F pmhx significant for M?ni?re's disease and HTN who presents with 2 syncopal episodes admitted for syncope workup. Cardiology consulted for syncope workup. #Syncope #Hx of syncope Patient presenting with 2 episodes of syncope at rest, each episode lasting for about 30 seconds to a minute. Has a history of syncopal episodes since childhood however usually has a prodrome of darkening peripherals and resolution with knee chest position, and recent episode has been different prior to the rest, as this time is associated with slurred speech slight confusion, not remembering the episode (as you know she is able to) and tremors. Admission bicarb 18.9, Cr 1.5. Ddx: Dehydration from frequent vomiting due to exacerbation of M?ni?re's disease, electrolyte abnormalities due to frequent vomiting, arrhythmia, seizure, orthostatic hypotension CT head negative for acute processes, EKG shows sinus rhythm rate [address] elevation. 07/08/25 Echo shows normal left ventricular function and size. Mild LVH. Estimated ejection fraction 6065%. Grade 1 diastolic dysfunction. Normal right ventricular size and function. RVSP 30 millimeters Hg with RAP 3. Trace mitral and trace tricuspid regurgitation, mild AV sclerosis without stenosis, small pericardial effusion with fibrinous exudate on RV wall indicating possible cardiac effusion. No evidence of pericardial tamponade. Telemetry reviewed no arrhythmias noted overnight. Plan: - Telemetry for cardiac monitoring - Hold Losartan and triamterene HCTZ due to soft BP - Will likely need holter monitoring outpatient if inpatient workup is negative - Recommend EEG to rule out seizure #NSTEMI, type II Admisison trops 0.002, 0.065, 0.175, 0.241, 0.215. Has had no history of heart attack. Currently denies chest pain, pressure, shortness of breath or palpitations. Likely demand ischemia secondary to episode of syncope. Plan: - Telemetry for monitoring - Keep K>4 and Mg>2 #M?ni?re's disease Patient reports longstanding history of M?ni?re's disease however for the past 1 to 2 weeks symptoms have been worsening due to increase in temperature. Reports frequent episodes of vomiting which may be a cause for syncope secondary to dehydration. Takes triamterene hydrochlorothiazide for many years. Plan: - CTM electrolytes - Zofran prn for nausea - Hold home triamterene-hydrochlorothiazide iso soft BPs #HTN Medications as above. Does not take BP at home. Plan: - Hold BP meds as above - CTM vitals #GERD #LESIA (resolved) Above managed by primary team. Thank you for the consultation and allowing participation in patient care. Plan of care discussed with attending Dr. Paige. Radha Hill, DO PGY-1 Internal Medicine
[2025-07-08] MEDS: Magnesium Sulfate 4 GM Ivpb 4 GM/50 ML BAG IV (10:35)
[2025-07-08 12:00] VITALS: BP 132/89; PULSE 83; PULSE 84; RESP 30; TEMP 37; O2SAT 95
[2025-07-08 15:00] VITALS: BP 154/96; PULSE 93; RESP 23; TEMP 36.8; O2SAT 95
--- NOTE | 2025-07-08 17:29 | ESDS_ITS ---
<Statement entered by Jaxson Sylvester MD - 07/21/25 09:05> I reviewed above note and agree with findings and plans. I have also personally examined the patient with medicine team and went over assessment and plan with medical team including automotive internet sales manager and resident physician. <Statement entered by Ra Olmstead MD - 07/08/25 17:39> Note reviewed and agree with care plan as documented. Please refer to the note below for further details. Plan discussed with attending physician Dr. Higinio Olmstead MD PGY-2 Internal Medicine Planned Discharge Date 07/08/25 DS: Providers Provider Date of admission: 07/06/25 18:13 Primary care physician: Ady Goldstein MD Admitting Provider: Jaxson Sylvester MD Attending Provider on Admission: Jaxson Sylvester MD Consults: 07/07/25 11:16 Consult to Cardiology Routine Comment: Consulting Provider: Minh Paige Instructions: Suspect cardiac-related syncopal event, in addition to elevated troponins. Denies CP, SOB, EKG unremarkable. Attending Provider on DC: Jaxson Sylvester MD Discharging Provider: RESIDENT Federica DS: Diagnosis Discharge Diagnosis (1) Syncope: Status: Acute Problem List Completed Was Problem List Reviewed/Reconciled?: Yes Hospital Course Hospital Course Hospital course: Hospital Course: 70-year-old female with a past medical history of M?ni?re's disease and hypertension who presented to the ED on 07/06/2020 2:25 episodes of syncope. She was laying down in bed watching TV when she had 2, 1 minute episodes 1 minute apart where she passed out and was unresponsive per her . She does not remember these events. With EMS her blood pressure was 83/51 and LR was started and route. The patient endorses intensified nausea and vomiting over the past few weeks associated with her M?ni?re's disease. She denies any chest pain, palpitations, diarrhea, abdominal pain, or dysuria. She is not on blood thinners. Patient was admitted to the hospital for monitoring after her syncope. The patient's troponins trended upwards and then downwards. Cardiology was consulted. An echocardiogram was performed that showed mild left ventricular hypertrophy with an estimated ejection fraction of 60 to 65%. There was trace mitral and trace tricuspid regurg. There was a small pericardial effusion with fibrinous exudate on the right ventricular wall indicating possible chronic effusion. There was no evidence of pericardial tamponade. Pericardiocentesis not performed. Cardiology recommended following up outpatient for possible Holter monitor. The patient was given medication to control her nausea and vomiting due to her M?ni?re's disease. Patient returned to baseline and was cleared for discharge. Problem List: #Syncopal episode #Elevated troponins #M?ni?re's disease #History of hypertension #GERD #LESIA (Resolved) Discharge Instructions: - Follow-up outpatient cardiology - Take your Zofran as needed for nausea - Continue taking all other home medications as prescribed - Follow-up with PCP within 1-2 weeks of discharge - If you do not have a PCP, you can follow-up at the [facility] - Return to ED if symptoms worsen The patient was seen and discussed with my attending physician Dr. Dr. Higinio PÉREZ and my senior resident Dr. GIRISH PÉREZ PGY-2. Klever Pascual DO PGY-1 Time Spent with Patient Time attestation: Total time spent providing and/or coordinating discharge services: More than 50%. Time spent: Greater than 30 minutes Exam Vital Signs Temp Pulse Resp BP Pulse Ox O2 Del Method 98.3 F 93 23 H 154/96 H 95 Room Air 07/08/25 15:00 07/08/25 15:00 07/08/25 15:00 07/08/25 15:00 07/08/25 15:00 07/08/25 15:00 Narrative Exam General: Awake and in no acute distress. Conversational and non-toxic appearing. Neurologic: GCS 15. Alert and oriented x3, no gross neurological deficit, and patient able to move all 4 extremities. HEENT: Mild proptosis bilaterally on gross examination, normocephalic, atraumatic, mucous membranes moist. Pupils reactive to light. Heart: Regular rate and rhythm, normal S1 and S2, no murmurs. Lungs: Clear to auscultation bilaterally with no wheezing or crackles. Abdomen: Soft, nondistended, nontender, positive bowel sounds. No guarding or rebound tenderness. Extremities: Left ankle swelling, nontender to palpation. No edema. 2+ radial and dorsalis pedis pulses bilaterally. Skin: Warm. Dry. No rash or ecchymoses. Discharge Plan Plan Patient Disposition: HOME (Self Care) Care Plan Goals: - Follow-up outpatient cardiology - Take your Zofran as needed for nausea - Continue taking all other home medications as prescribed - Follow-up with PCP within 1-2 weeks of discharge - If you do not have a PCP, you can follow-up at the [facility] - Return to ED if symptoms worsen Prescriptions/Referrals Prescriptions/Med Rec: New ondansetron HCl 4 mg tablet 4 mg PO Q6H PRN (Reason: nausea and vomiting) 5 Days Qty: 20 0RF Continued losartan 50 mg tablet 50 mg PO DAILY triamterene-hydrochlorothiazid 75-50 mg Tablet 1 tab PO QDAY alum-mag hydroxide-simeth [Antacid Regular Strength] 200-200-20 mg/5 mL suspension 15 ml PO Q6H PRN (Reason: dyspepsia and Nausea/Vomiting) Discontinued pantoprazole [Protonix] 40 mg Tablet,Delayed Release (Dr/Ec) 40 mg PO QDAY Qty: 90 0RF Referrals: Ady Goldstein MD [Primary Care Provider, Family Practice] Patient/Caregiver Discharge Instructions Education Materials: What Is Syncope?, Causes of Syncope Print Language: Serbian Stand Alone Forms: Bren Award Info., Patient Portal Info Letter Discharge Order Discharge Orders: Discharge (Routine); Ordered 07/08/25 Ordered By: Ra Olmstead Quality Discharge Quality Measures none
== END 2025-07-08 15:11 | disposition home or self-care (01) | DRG 312 ==
LOC: SERX 17:30 → SERHOLD 18:37 → S2NX 20:28
PROVIDERS: Admitting Provider Internal Medicine; Emergency Provider Emergency Medicine; PCP Family Medicine; Visit Provider Internal Medicine
DX: R55 Syncope and collapse (principal); N17.9 Acute kidney failure, unspecified; I31.39 Other pericardial effusion (noninflammatory); K21.9 Gastro-esophageal reflux disease without esophagitis; I10 Essential (primary) hypertension; I95.9 Hypotension, unspecified; H81.09 Meniere's disease, unspecified ear; Z96.652 Presence of left artificial knee joint; Z79.899 Other long term (current) drug therapy
CPT/HCPCS: 36415; 70450; 71045; 80053; 80061; 83735; 83880; 84100; 84439; 84443; 84484; 85025; 85610; 85730; 93005; 93306; 96361; 96374; 96375; 99284; A4649; J2405; J3475; J3490; J7030; J7120; A9270

== ENCOUNTER → 2025-09-05 | Outpatient (CLI) | payer OTHER, SELFPAY ==
[2025-09-05 08:03] LABS: Collection Type, Urine Clean Catch
[2025-09-05 08:33] LABS: Basophils # (Auto) 0.0 Thou/mm3 (0.0-0.2); Basophils % (Auto) 0 % (0-2.5); Eosinophils # (Auto) 0.1 Thou/mm3 (0.0-0.5); Eosinophils % (Auto) 2 % (0-10); Hematocrit 42.6 % (36.0-46.0); Hemoglobin 13.9 g/dL (12.0-16.0); Immature Granulocytes Auto 0.02 Thou/mm3 (0.00-0.00); Lymphocytes # (Auto) 2.9 Thou/mm3 (1.0-4.8); Lymphocytes % (Auto) 38 % (10-50); Mean Corpuscular HGB Conc 32.6 g/dl (31.0-37.0); Mean Corpuscular Hemoglobin 34.7 pg (25.0-35.0); Mean Corpuscular Volume 106 fL (80-100); Monocytes # (Auto) 0.6 Thou/mm3 (0.0-0.8); Monocytes % (Auto) 8 % (0-12); Neutrophils # (Auto) 4.0 Thou/mm3 (1.8-7.7); Neutrophils % (Auto) 52 % (37-80); Nucleated Red Blood Cell # 0.00 Thou/mm3 (0.00-0.00); Nucleated Red Blood Cell % 0 /100 WBC (0); Platelet Count 373 Thou/mm3 (140-440); RDW Standard Deviation 49.1 fL (36.4-46.3); Red Blood Count 4.01 Miln/mm3 (4.00-5.20); White Blood Count 7.7 Thou/mm3 (3.6-11.0)
[2025-09-05 08:47] LABS: Vitamin B12 369 pg/mL (211-911); Vitamin D 25 Hydroxy Total 34.3 ng/mL (7.3-40.2)
[2025-09-05 08:52] LABS: Alanine Aminotransferase 47 U/L (10-49); Albumin, Serum 4.1 gm/dL (3.4-4.8); Alkaline Phosphatase 86 U/L (46-116); Anion Gap 9 (7-16); Aspartate Amino Transferase 33 U/L (0-34); BUN/Creatinine Ratio 15 Ratio (12-20); Bilirubin,Direct 0.2 mg/dL (0.0-0.3); Bilirubin,Total 0.7 mg/dL (0.3-1.2); Blood Urea Nitrogen 15 mg/dL (9-23); Calcium 9.2 mg/dL (8.3-10.6); Carbon Dioxide 23.8 mMol/L (20.0-31.0); Chloride 109 mMol/L (98-107); Creatinine (Component) 1.0 mg/dL (0.6-1.3); Glucose 106 mg/dL (74-106); Osmolality,Calculated 283 (275-295); Phosphorous 3.0 mg/dL (2.4-5.1); Potassium 3.6 mMol/L (3.4-5.1); Sodium 142 mMol/L (136-145); Total Protein 6.6 gm/dL (5.7-8.2); eGFR > 60 See Note
[2025-09-05 09:19] LABS: Bacteria,Urine 1+; Bilirubin,Urine Negative (Negative); Blood,Urine Negative (Negative); Clarity,Urine Turbid (Clear/Hazy); Color,Urine Yellow (Lt Yel-Yel); Glucose, Urine Negative (Negative); Hyaline Casts,Urine < 1 /hpf (0-1); Ketones,Urine Negative (Negative); Leukocyte Esterase,Urine Positive (Negative); Nitrite,Urine Negative (Negative); PH,Urine 6.5 (5.0-7.0); Protein,Urine Negative (Neg - Trace); RBC,Urine 1 /hpf (0-3); Specific Gravity,Urine 1.016 (1.001-1.035); Squamous Epithelial Cell,Urine 18 /hpf (0-5); Urobilinogen,Urine Negative mg/dL (0.0-1.0); WBC,Urine 4 /hpf (0-5)
[2025-09-05 09:20] LABS: Creatinine,Random Urine 152 mg/dL (30-125); Protein Total, Random Urine 16 mg/dL (1-14)
== END | disposition home or self-care (01) ==
LOC: COPL 06:41
PROVIDERS: PCP Family Medicine; Referring Provider Internal Medicine; Visit Provider Internal Medicine
DX: I12.9 Hypertensive chronic kidney disease with stage 1 through stage 4 chronic kidney disease, or unspecified chronic kidney disease (principal); N18.32 Chronic kidney disease, stage 3b; H81.09 Meniere's disease, unspecified ear; R74.01 Elevation of levels of liver transaminase levels
CPT/HCPCS: 36415; 80048; 80069; 80076; 81001; 82306; 82570; 82607; 84100; 84156; 85025